=== PATIENT | female | born 2005 | race Caucasian/White ===

== ENCOUNTER 2023-11-29 13:16 | Inpatient (IN) | payer OTHER ==
[~2023-11-29] VITALS: Ht 162.6 cm; Wt 62.5 kg
[2023-11-29] MEDS ORDERED: NS 1,000 ML IV ONE (14:00)
[2023-11-29] MEDS ORDERED: Ondansetron 4 MG/2 ML VIAL IV ONE (14:00)
[2023-11-29 14:24] LABS: BASO # 0.1 K/mm3 (0.0-0.2); BASO % 0.6 % (0.0-2.0); EOS # 0.1 K/mm3 (0.0-0.7); GRAN # 6.3 K/mm3 (1.4-6.5); GRAN % 71.9 % (42.2-75.2); HEMOGLOBIN 10.2 g/dl (12.0-15.0); LYMPH # 1.8 K/mm3 (1.2-3.4); LYMPH % 20.9 % (20.0-51.0); MEAN CELL VOLUME 90 fl (80.0-95.0); MEAN CORPUSCULAR HEMOGLOBIN 30 pg (26-32); MEAN CORPUSCULAR HGB CONC 33 g/dl (33.0-37.0); MEAN PLATELET VOLUME 11.9 fl (7.4-10.4); MONO # 0.5 K/mm3 (0.1-0.6); MONO % 5.3 % (1.7-9.3); PLATELET COUNT 217 K/mm3 (130-400); RED BLOOD COUNT 3.46 M/mm3 (4.10-5.30); REDCELL DISTRIBUTION WIDTH-CV 12.6 % (11.5-14.5)
[2023-11-29 14:26] LABS: HEMATOCRIT 31.2 % (35.0-45.0)
[2023-11-29 14:29] LABS: URINE APPEARANCE CLEAR (CLEAR/HAZY); URINE BLOOD 2+ (NEGATIVE); URINE COLOR YELLOW (YELLOW); URINE GLUCOSE NEGATIVE (NEGATIVE); URINE KETONE NEGATIVE (NEGATIVE); URINE NITRATE NEGATIVE (NEGATIVE); URINE PROTEIN(semi-quant) 3+ (NEGATIVE); URINE UROBILINOGEN 0.2 E.U/dL (0.2-1.0)
[2023-11-29 14:45] LABS: ALBUMIN 4.1 gm/dL (3.5-5.0); BILIRUBIN,TOTAL 0.3 mg/dL (0.2-1.2); CALCIUM 10.5 mg/dL (8.4-10.2); CREATININE, serum 8.32 mg/dL (0.57-1.11); POTASSIUM 5.3 mmol/L (3.5-4.5); TOTAL PROTEIN 8.4 gm/dL (6.2-8.1)
[2023-11-29 14:54] LABS: SQUAMOUS EPITHELIAL 0-2 /hpf (0-10); URINE BACTERIA RARE /hpf (NONE SEEN); URINE RBC 0-2 /hpf (0-2)
[2023-11-29 14:55] LABS: COLLECTION METHOD CLEAN CATCH
[2023-11-29 16:00] VITALS: BP 146/95; PULSE 96; TEMP 98.2
[2023-11-29 17:00] VITALS: BP_SYST 146
[2023-11-29] MEDS ORDERED: Ondansetron 4 MG/2 ML VIAL IV PRN (17:00)
[2023-11-29] MEDS ORDERED: Acetaminophen 325 MG TAB PO PRN (17:00)
--- NOTE | 2023-11-29 17:01 | NUR ---
TWO PERSON SKIN CHECK DONE WITH [facility]- SKIN IS INTACT WITHOUT ABNORMALITIES
[2023-11-29] MEDS ORDERED: NS 1,000 ML IV SCH (17:15)
[2023-11-29] MEDS ORDERED: Sodium Zirconium Cyclosilicate for Oral Susp 10 GM PACKET PO ONE (17:15)
[2023-11-29 18:19] LABS: MONOSCREEN NEGATIVE
[2023-11-29 20:17] VITALS: BP 146/90; PULSE 101; TEMP 98.4
[2023-11-29] MEDS ORDERED: Sodium Bicarbonate/Water,Steri 1,150 ML IV SCH (20:30)
--- NOTE | 2023-11-29 20:50 | NUR ---
ASSESSMENT COMPLETE. MOTHER AT BEDSIDE. DENIES PAIN OR NAUSEA AT THIS TIME. PATIENT UP TO RESTROOM TO VOID, SAMPLE COLLECTED AND LABORATORY STAFF AT BEDSIDE FOR SAMPLE COLLECTION. DENIES ANY OTHER NEEDS AT THIS TIME. CALL LIGHT WITHIN REACH AND BED IN LOW POSIITION.
[2023-11-29 21:07] VITALS: BP_SYST 146
[2023-11-29 22:37] LABS: HIV 1/2 Antibodies Non-Reactive; HIV-1p24 Antigen Non-Reactive
[2023-11-30] VITALS (13 sets, daily range): BP systolic 131–145; BP diastolic 83–93; PULSE 67–103; TEMP 97.9–99.2
[2023-11-30 00:24] LABS: TRICYCLIC ANTIDEPRESS URINE NEGATIVE (NEGATIVE)
[2023-11-30 01:06] LABS: CREATININE, serum 8.12 mg/dL (0.57-1.11)
[2023-11-30 01:24] LABS: FRACTIONAL EXCRETION OF NA+ 7.25 %
[2023-11-30 06:43] LABS: BASO % 0.5 % (0.0-2.0); EOS # 0.1 K/mm3 (0.0-0.7); EOS % 1.3 % (0.0-4.0); GRAN # 5.1 K/mm3 (1.4-6.5); GRAN % 63.6 % (42.2-75.2); LYMPH # 2.2 K/mm3 (1.2-3.4); LYMPH % 27.4 % (20.0-51.0); MEAN CORPUSCULAR HGB CONC 34 g/dl (33.0-37.0); MEAN PLATELET VOLUME 12.6 fl (7.4-10.4); MONO # 0.6 K/mm3 (0.1-0.6); MONO % 6.9 % (1.7-9.3); PLATELET COUNT 168 K/mm3 (130-400); RED BLOOD COUNT 2.73 M/mm3 (4.10-5.30); REDCELL DISTRIBUTION WIDTH-CV 12.3 % (11.5-14.5)
--- NOTE | 2023-11-30 06:48 | NUR ---
PT RESTING IN BED. PT IS ON RA. PT IS SHOWING SR ON TELE. PT HAS IVF RUNNING. PT'S MOM BEDSIDE. PT IS AXOX3. PT HAS CALL LIGHT AND INSTRUCTED TO CALL WITH ALL NEEDS.
[2023-11-30 06:49] LABS: CALCIUM 8.5 mg/dL (8.4-10.2); CREATININE, serum 8.13 mg/dL (0.57-1.11); POTASSIUM 4.5 mmol/L (3.5-4.5)
[2023-11-30 07:01] LABS: HEMATOCRIT 23.7 % (35.0-45.0); HEMOGLOBIN 8.1 g/dl (12.0-15.0); MEAN CELL VOLUME 87 fl (80.0-95.0); MEAN CORPUSCULAR HEMOGLOBIN 30 pg (26-32)
--- NOTE | 2023-11-30 09:35 | NUR ---
Chairman & Co Founder met with patient and her mother, Rachel (ph#[phone]) to discuss discharge planning. Patient's parents live in [place], however patient lives here in [place] with roommates and is a student at [employer] studying [employer]. Patient utilizes [facility] on campus for healthcare needs and gets medications from [facility] in [employer] with no difficulties. Patient is independent with ADLS and plans to return either to her residence or home with her parents at time of discharge. Discharge Plan; Home
[2023-11-30] MEDS ORDERED: Fexofenadine 180 MG **** subs to Loratadine 10 MG PO SCH (13:04)
[2023-11-30] MEDS ORDERED: Loratadine 10 MG TAB PO SCH (13:30)
[2023-11-30] MEDS ORDERED: Sodium Bicarbonate/Water,Steri 1,150 ML IV SCH (16:00)
[2023-11-30 17:19] LABS: HEPATITIS B SURFACE ANTIGEN Negative (Negative); HEPATITIS C VIRUS ANTIBODY Negative (Negative)
[2023-11-30 18:01] LABS: COMPLEMENT-C3 79 mg/dL (83-193); COMPLEMENT-C4 26 mg/dL (15-57)
--- NOTE | 2023-11-30 19:32 | NUR ---
Bedside report received from RN Harish. Pt is awake in bed eating dinner with no complaints. Call light within reach.
--- NOTE | 2023-11-30 20:15 | NUR ---
Shift assessment completed. VSS. Pt is sitting in bed watching tv and visitng with family. Pt reports no nausea or ABD pain at this time. Telemetry in place. Sodium Bicarb infusing into Lt wrist with no complications. Pt has no request at this time. Call light within reach.
[2023-11-30] MEDS ORDERED: Montelukast 10 MG TAB PO SCH (21:00)
[2023-12-01] VITALS (12 sets, daily range): BP systolic 115–147; BP diastolic 79–101; PULSE 67–88; TEMP 98.1–99.2
--- NOTE | 2023-12-01 00:15 | NUR ---
Resumed cares from ARVIN Mace.
--- NOTE | 2023-12-01 02:51 | NUR ---
Patient assessed at this time, see shift assessment, denies pain or discomfort, still with sodium bicarb drip at 100cc/hr, mom at bedside, denies further needs, call light and personal items within reach, will continue to monitor.
--- NOTE | 2023-12-01 02:56 | NUR ---
Patient reports she's anxious at this time, states "im just anxious of being here" and she's wondering if she could take a pill to help her anxiety. Patient was given warm blanket by the tech few minutes ago. Called Mónica, the MORTGAGE LOAN SPECIALIST but unable to get a hold of her. Will try to call again.
--- NOTE | 2023-12-01 03:27 | NUR ---
This nurse came to check the patient, mom reports she's okay at this time and was able to sleep a little bit, will continue to monitor.
--- NOTE | 2023-12-01 07:00 | NUR ---
PT RESTING IN BED. PT IS ON RA. PT IS SR ON TELE. PT HAS BICARB DRIP RUNNING. PTS MOTHER BEDSIDE. PT IS AXOX3. PT HAS CALL LIGHT AND INSTRUCTED TO CALL WITH ALL NEEDS.
[2023-12-01] MEDS ORDERED: Loratadine 10 MG TAB PO SCH (09:00)
[2023-12-01] MEDS ORDERED: clonazePAM 0.25 MG TAB PO PRN (10:15)
[2023-12-01 12:06] LABS: BASO % 0.5 % (0.0-2.0); EOS # 0.1 K/mm3 (0.0-0.7); EOS % 0.8 % (0.0-4.0); LYMPH # 1.4 K/mm3 (1.2-3.4); LYMPH % 18.1 % (20.0-51.0); MEAN CELL VOLUME 85 fl (80.0-95.0); MEAN CORPUSCULAR HGB CONC 36 g/dl (33.0-37.0); MEAN PLATELET VOLUME 12.1 fl (7.4-10.4); MONO # 0.3 K/mm3 (0.1-0.6); MONO % 4.2 % (1.7-9.3); PLATELET COUNT 185 K/mm3 (130-400); RED BLOOD COUNT 3.12 M/mm3 (4.10-5.30); REDCELL DISTRIBUTION WIDTH-CV 12.1 % (11.5-14.5)
[2023-12-01 12:12] LABS: HEMATOCRIT 26.5 % (35.0-45.0); HEMOGLOBIN 9.4 g/dl (12.0-15.0); MEAN CORPUSCULAR HEMOGLOBIN 30 pg (26-32)
[2023-12-01 12:19] LABS: CALCIUM 9.5 mg/dL (8.4-10.2); CREATININE, serum 7.71 mg/dL (0.57-1.11); POTASSIUM 3.7 mmol/L (3.5-4.5)
--- NOTE | 2023-12-01 13:06 | NUR ---
0900-LAB UNABLE TO DRAW BLOOD THIS AM FOR LABS. WILL ATTEMPT AGAIN LATER. 1100-LAB STILL UNABLE TO DRAW LABS. ER CHARGE CALLED AND ASKED TO TRY. 1115- JUNAID OSEGUERA ABLE TO GET BLOOD. BLOOD WORK TAKEN TO LAB. 1245- NOTIFIED OF ABOVE. WILL SPEAK WITH REGARDING POTENTIAL LENGTH OF STAY AND PICC LINE TOMORROW.
[2023-12-01] MEDS ORDERED: ALLEGRA ALLERG180 MG PO (19:03)
[2023-12-01] MEDS ORDERED: PROAIR HFA0.09 MG/AC IH (19:04)
[2023-12-01] MEDS ORDERED: SINGULAIR 110 MG/TAB PO (19:04)
[2023-12-01] MEDS ORDERED: BIRTH CONTROL PO (19:06)
--- NOTE | 2023-12-01 20:30 | NUR ---
UPON SHIFT ASSESSMENT, LACI WAS AWAKE IN BED AND AXO X4 AND PLESANT. MOTHER IS BEDSIDE. VS ARE WNL AND TELE IS WNL. PATIENT C/O 5/10 HEAD ACHE AND PRN TYLENOL ADMINISTERED. NO ABDOMINAL PAIN NOTED WITH PALPATION. SODIUM BICARB RUNNING AT 100ML/HR. LACI AND MOM LEAVING ROOM TO WALK UNIT.
[2023-12-02] VITALS (10 sets, daily range): BP systolic 132–153; BP diastolic 84–97; PULSE 68–83; TEMP 98–98.8
--- NOTE | 2023-12-02 | NUR ---
ROUNDED ON PATIENT. RR 16 WITH NO VISABLE SIGNS OF DISTRESS. STILL OBTUNDED, MINIMAL RESPONSE TO PAIN ( NAILBED PRESSURE).
--- NOTE | 2023-12-02 02:11 | NUR ---
CALL RECIEVED FROM TELE, PATIENT TACHYCARDIC. PATIENT FOUND AMBULATING TO BATHROOM. TELE NOW BACK DOWN TO 90 BPM.
--- NOTE | 2023-12-02 02:25 | NUR ---
PATIENT STATES FEELING ANXIOUS. REQUESTED ANTIAXIETY MED. PRN KLONOPIN 0.25MG GIVEN.
--- NOTE | 2023-12-02 07:25 | NUR ---
PATIENT ASLEEP, RESTING IN BED. PATIENT APPEARS TO BE IN NO ACUTE DISTRESS. IVF INFUSING ORDERED. PATIENTS MOTHER AT BEDSIDE. CALL LIGHT WITHIN REACH.
--- NOTE | 2023-12-02 07:52 | NUR ---
AIVS AT BEDSIDE.
--- NOTE | 2023-12-02 07:57 | NUR ---
THIS RN SPOKE WITH ISABEL IN CT. PER CT THEY WILL CONFER WITH RADIOLOGY REGARDING THE BEST TIME FOR KIDNEY BIOPSY TO TAKE PLACE. THIS RN IS AWATIING CALL BACK FOR TIME.
--- NOTE | 2023-12-02 09:45 | NUR ---
PATIENT TOOK SHOWER. LINEN CHANGED.
--- NOTE | 2023-12-02 10:00 | NUR ---
PER MICHAEL HALL, KIDNEY BIOPSY TO TAKE PLACE AT 11 AM TOMORROW.
[2023-12-02 10:35] LABS: BASO % 0.7 % (0.0-2.0); EOS # 0.1 K/mm3 (0.0-0.7); EOS % 1.6 % (0.0-4.0); GRAN # 3.8 K/mm3 (1.4-6.5); GRAN % 65.2 % (42.2-75.2); LYMPH # 1.5 K/mm3 (1.2-3.4); LYMPH % 25.9 % (20.0-51.0); MEAN CELL VOLUME 85 fl (80.0-95.0); MEAN CORPUSCULAR HGB CONC 35 g/dl (33.0-37.0); MEAN PLATELET VOLUME 12.4 fl (7.4-10.4); MONO # 0.4 K/mm3 (0.1-0.6); MONO % 6.4 % (1.7-9.3); PLATELET COUNT 151 K/mm3 (130-400); RED BLOOD COUNT 2.58 M/mm3 (4.10-5.30); REDCELL DISTRIBUTION WIDTH-CV 11.9 % (11.5-14.5)
[2023-12-02 10:36] LABS: HEMOGLOBIN 7.6 g/dl (12.0-15.0); MEAN CORPUSCULAR HEMOGLOBIN 29 pg (26-32)
[2023-12-02 10:40] LABS: INR 1.1 (0.8-3.0); PROTHROMBIN TIME 12.2 SECONDS (9.7-12.8)
[2023-12-02 11:15] LABS: CALCIUM 9.1 mg/dL (8.4-10.2); CREATININE, serum 7.93 mg/dL (0.57-1.11); POTASSIUM 3.4 mmol/L (3.5-4.5)
--- NOTE | 2023-12-02 12:15 | NUR ---
THIS RN CLARIFIED WITH RADIOLOGY NURSE DEMETRIUS ABOUT PT INR ORDERS. PATIENT HAD A PT INR COME BACK THIS AM WNL. PER RIB CLOTH KNITTER TODAYS LABS WILL BE OK FOR BIOPSY TOMORROW IF IN NORMAL LIMITS
--- NOTE | 2023-12-02 12:51 | NUR ---
PATIENT AWAKE AND ALERT, SITTING UP IN BED. PATEITNS MOM AT BEDSIDE. PATIENT DENEIS ANY CURRENT NEEDS OR COMPLAINTS AT THIS TIME. CALL LIGTH WITHIN REACH.
--- NOTE | 2023-12-02 18:55 | NUR ---
PATIENT AWAKE AND ALERT, SITTING UP IN BED. [facility] CALL LIGHT WTIHIN REACH.
[2023-12-02 20:24] LABS: C-ANCA 56 U/mL (0-99)
[2023-12-03] VITALS (38 sets, daily range): BP systolic 128–157; BP diastolic 68–104; PULSE 65–161; TEMP 98–99.5
--- NOTE | 2023-12-03 06:50 | NUR ---
PT RESTING IN BED. PT IS ON RA. PT IS SR ON TELE. PT'S MOM BEDSIDE. PT IS NPO FOR RENAL BIOPSY. 814-TRACEY BURNS NOTIFIED OF SBP ABOVE 140'S. ORDERS RECEIVED 829-SPOKE WITH KAEL OSEGUERA IN RADIOLOGY. PT SCHEDULED FOR 1100 CT GUIDED BIOPSY. PT AND MOM UPDATED.
[2023-12-03 07:19] LABS: BASO % 0.5 % (0.0-2.0); EOS # 0.2 K/mm3 (0.0-0.7); EOS % 2.7 % (0.0-4.0); GRAN # 3.4 K/mm3 (1.4-6.5); GRAN % 56.2 % (42.2-75.2); LYMPH % 32.8 % (20.0-51.0); MEAN CELL VOLUME 88 fl (80.0-95.0); MEAN CORPUSCULAR HGB CONC 34 g/dl (33.0-37.0); MEAN PLATELET VOLUME 12.2 fl (7.4-10.4); MONO # 0.5 K/mm3 (0.1-0.6); MONO % 7.5 % (1.7-9.3); PLATELET COUNT 141 K/mm3 (130-400); RED BLOOD COUNT 2.45 M/mm3 (4.10-5.30); REDCELL DISTRIBUTION WIDTH-CV 11.8 % (11.5-14.5)
[2023-12-03 07:26] LABS: HEMATOCRIT 21.5 % (35.0-45.0); HEMOGLOBIN 7.2 g/dl (12.0-15.0); MEAN CORPUSCULAR HEMOGLOBIN 29 pg (26-32)
--- NOTE | 2023-12-03 07:30 | NUR ---
KATY STONE WAS CONTACTED AT 3:55 AM REGARDING THE PATIENTS BLOOD PRESSURES. PER RENAL THE PATIENTS SYSTOLIC BP SHOULD BE LESS THAN 140 SO THE RENAL BIPOSY CAN BE DONE TODAY AT 11 AM. RECENT BP'S WERE 157/95 AND 147/95. PER KATY STONE NO NEW ORDERS AT THIS TIME. WILL MONITOR.
[2023-12-03 07:35] LABS: INR 1.1 (0.8-3.0); PROTHROMBIN TIME 12.1 SECONDS (9.7-12.8)
[2023-12-03 07:36] LABS: CALCIUM 9.1 mg/dL (8.4-10.2); CREATININE, serum 8.07 mg/dL (0.57-1.11); POTASSIUM 3.7 mmol/L (3.5-4.5)
--- NOTE | 2023-12-03 07:59 | NUR ---
NURSING SHIFT ASSESSMENT COMPLETED. THE PATIENT WAS ALERT AND ORIENTED. THE PATIENT DENIED PAIN OR DISCOMFORT. THE PATIENT ALSO DENIED OTHER NEEDS AT THIS TIME. CALL LIGHT AND PERSONAL BELONGINGS WITHIN REACH. THE PATIENT IS UP INDEPENDENTLY IN THE ROOM. THE PLAN OF CARE AND EVENING MEDICATIONS REVEIWED.
[2023-12-03] MEDS ORDERED: hydrALAZINE 20 MG/ML 1 ML VIAL IV ONE (08:30)
[2023-12-03] MEDS ORDERED: amLODIPine 10 MG TAB PO SCH (09:15)
--- NOTE | 2023-12-03 10:46 | NUR ---
8447-THIS RN RECEIVED A CALL FROM PAPER PATTERN FOLDER THAT PT HAD A EPISODE OF EMESIS AND BECAME DIAPHARETIC. THIS RN WAS IN ANOTHER ROOM IN A STERILE PROCEDURE, HAD FILM BOOKER GO TO ASSESS PT. PT'S BP AND HR ELEVATED. PT BACK IN BED. 1000-THIS RN WENT TO ROOM. PT RESTING IN BED. PT APPEARS MORE CALM AND RELAXED. STATED SHE HAD A BM THEN AFTER THREW UP AND BECAME CLAMPY. PT STATES SHE THINKS SHE IS ANXIOUS ABOUT BIOPSY. VS RECHECKED AND BP STILL ELEVATED BUT BETTER AND HR NORMAL. 1010- NOTIFIED OF ABOVE.
--- NOTE | 2023-12-03 11:14 | NUR ---
pt to ct per bed. Denies complaints. Pt up and onto ct table. Monitors applied. O2 on at 2l/nc.
--- NOTE | 2023-12-03 11:22 | NUR ---
1107-KAEL RN WITH RADIOLOGY UPDATED ON PT, ANXIETY, NAUSEA, AND BP. ZOFRAN GIVEN. PT TAKEN DOWN TO CT FOR BIOPSY.
[2023-12-03] MEDS ORDERED: Midazolam 2 MG/2 ML VIAL IV SCH (11:27)
[2023-12-03] MEDS ORDERED: fentaNYL 50 MCG/ML 2 ML VIAL IV SCH (11:27)
--- NOTE | 2023-12-03 11:41 | NUR ---
Specimens obtained and placed in britni dish by Dr Gutierrez. Specimens taken out to pathologist to review.
--- NOTE | 2023-12-03 17:30 | NUR ---
1200-PT BACK FROM RADIOLOGY. PT HAD LEFT RENAL BX. PT IS TO BE BEDREST FOR [address] ON Q15 VS. PT AND MOM UPDATED ON ABOVE. PT STATES SHE IS FEELING WELL WITH NO PAIN. 1250-PT'S HOB RAISED TO 30. PT EATING LUNCH WITH ASSISTANCE FROM MOM.
--- NOTE | 2023-12-03 18:37 | NUR ---
SPOKE WITH DR. NEWSOME PRIOR TO ROUNDING ON PT. UPDATED ON VS, CLEAR YELLOW URINE, PT DENIES PAIN, BX SITE C/D/I. ORDERS FOR BEDREST WITH BRP AND NO NEED TO NOTIFY HIM OF URINE CHARACTERISTICS.
--- NOTE | 2023-12-03 19:30 | NUR ---
PATIENT RESTING IN BED TALKING TO HER MOTHER ON CELL PHONE WITH TV OFF WITH NO ACUTE DISTRESS NOTED. PATIENT ON ROOM AIR. PICC LINE TO RIGHT UPPER ARM INTACT WITH NO COMPLICATIONS NOTED. PATIENT DENIES ANY NEEDS AT THIS TIME. PATIENT CARE ASSUMED FROM LAURA. BED IN LOW POSITION WITH WHEELS LOCKED WITH RAILS UP X3 AND CALL LIGHT WITHIN REACH.
--- NOTE | 2023-12-03 20:36 | NUR ---
PATIENT RESTING IN BED WITH TV OFF WITH CELL PHONE IN HAND WITH NO ACUTE DISTRESS NOTED. PATIENT ON ROOM AIR. PICC LINE TO RIGHT UPPER ARM INTACT. TELEMETRY INTACT. ASSESSMENT AND MEDICATION ADMINISTRATION COMPLETED AT THIS TIME. PATIENT MOTHER ARRIVED TO ROOM. PATIENT TOLERATED WELL. PATIENT DENIES ANY NEEDS. BED IN LOW POSITION WITH WHEELS LOCKED WITH RAILS UP X3 AND CALL LIGHT WITHN REACH.
[2023-12-04] VITALS (8 sets, daily range): BP systolic 135–153; BP diastolic 84–92; PULSE 82–99; TEMP 98–99.1
[2023-12-04 08:03] LABS: BASO # 0.1 K/mm3 (0.0-0.2); BASO % 0.8 % (0.0-2.0); CALCIUM 9.1 mg/dL (8.4-10.2); CREATININE, serum 8.56 mg/dL (0.57-1.11); EOS # 0.1 K/mm3 (0.0-0.7); EOS % 2.1 % (0.0-4.0); GRAN # 3.6 K/mm3 (1.4-6.5); GRAN % 58.8 % (42.2-75.2); LYMPH # 1.9 K/mm3 (1.2-3.4); LYMPH % 31.2 % (20.0-51.0); MEAN CELL VOLUME 88 fl (80.0-95.0); MEAN CORPUSCULAR HGB CONC 34 g/dl (33.0-37.0); MEAN PLATELET VOLUME 12.7 fl (7.4-10.4); MONO # 0.4 K/mm3 (0.1-0.6); MONO % 6.9 % (1.7-9.3); PLATELET COUNT 151 K/mm3 (130-400); POTASSIUM 3.9 mEq/L (3.5-4.5); REDCELL DISTRIBUTION WIDTH-CV 11.9 % (11.5-14.5)
[2023-12-04 08:08] LABS: HEMATOCRIT 22.1 % (35.0-45.0); HEMOGLOBIN 7.4 g/dl (12.0-15.0); MEAN CORPUSCULAR HEMOGLOBIN 30 pg (26-32)
[2023-12-04] MEDS ORDERED: D5W IV SCH (09:00)
[2023-12-04] MEDS ORDERED: METHYLPREDNISOLONE SOD SUCC IV SCH (09:00)
--- NOTE | 2023-12-04 09:57 | NUR ---
iron worker foreman was notified patient is going to be transferred to another facility. Dr. Arreaga is attempting to find a facility in [place] as patient is from there.
--- NOTE | 2023-12-04 14:56 | NUR ---
PT TRANSFERRED VIA EMS TO [facility]. REPORT WAS GIVEN TO ANA ROSA PALM. PT SENT WITH PICC LINE IN PLACE-EMS WAS NOTIFIED. MOTHER FOLLOWING EMS IN PERSONAL VEHICHLE WITH PT BELONGINGS.
--- NOTE | 2023-12-04 15:16 | NUR ---
Initial visit; Patient and her mom thanked Dialysis Chief Equipment Technician for looking in on Brooklynn and offering God's blessings. Patient states she is being transferred to [place], her home town to the hospital there. She will further treatment there. Brooklynn ask that Dialysis Chief Equipment Technician keep her in Dialysis Chief Equipment Technician's prayers.
[2023-12-05 16:09] LABS: A/G RATIO (PEP) 1.2 (0.7-1.7); BETA GLOBULINS (PEP) 0.9 g/dL (0.7-1.3)
[2023-12-05 17:09] LABS: URINE T PROTEIN, RANDOM (PEP) 105.8 mg/dL (())
== END 2023-12-04 14:27 | disposition short-term general hospital (02) | DRG 683 ==
LOC: COL.ER 13:16 → MEDICAL 15:34
PROVIDERS: Internal Medicine Nephrology; Physician Assistant; ADMIT Hospitalist
PROC: 0TB13ZX Excision of Left Kidney, Percutaneous Approach, Diagnostic (ICD-10-PCS; principal; 2023-12-02)
PROC: 02HV33Z Insertion of Infusion Device into Superior Vena Cava, Percutaneous Approach (ICD-10-PCS; 2023-12-02)
DX: N17.9 Acute kidney failure, unspecified (principal); E87.20 Acidosis, unspecified; M31.31 Wegener's granulomatosis with renal involvement; E87.5 Hyperkalemia; I10 Essential (primary) hypertension; F41.9 Anxiety disorder, unspecified; R31.9 Hematuria, unspecified; D64.9 Anemia, unspecified; J45.909 Unspecified asthma, uncomplicated; Z88.0 Allergy status to penicillin; Z23 Encounter for immunization
CPT/HCPCS: A9270; C1751; J0360; J2250; J2405; J2930; J3010; J7030; J7060; Q3014